=== PATIENT | female | born 1980 | race Caucasian/White ===

== ENCOUNTER 2022-11-16 10:49 | Outpatient (REF) | payer OTHER, SELFPAY ==
[2022-11-16 10:51] LABS: MANUAL DIFF FLAG NO
[2022-11-16 11:00] LABS: Appearance Urine Clear; Color Urine Yellow; Glucose Urine UA Negative (Negative); Leukocyte Esterase Urine Trace (Negative); Nitrite Urine Negative (Negative); PH 5.5 (5.0-9.0); Specific Gravity - Urine 1.015 (1.005-1.025); UMIC TRIGGER UACC YES; Urine Blood Negative (Negative); Urine Ketones Negative (Negative); Urine Protein Negative (Neg-Trace)
[2022-11-16 11:05] LABS: Bacteria Urine None Seen (None Seen); Hyaline Casts Urine 0-2 /LPF (0-2); RBC Urine 0-2 /HPF (0-2); WBC Urine 0-5 /HPF (0-5)
[2022-11-16 11:09] LABS: Basophils Percent Auto 0.7 % (0-2); Eosinophils Absolute Auto 0.2 X10*3/uL (0.0-0.4); Eosinophils Percent Auto 2.4 % (0-4); Hematocrit 40.7 % (37.0-47.0); Hemoglobin 13.3 g/dl (12.0-16.0); Imm Gran Abs Auto 0.02 X10*3/uL (0.00-0.03); Imm Gran Pct Auto 0.3 % (0.0-0.4); Lymphocytes Percent Auto 32.2 % (20-40); Mean Corpuscular HGB Conc 32.7 g/dl (31.0-35.0); Mean Corpuscular Hemoglobin 28.1 pg (27.0-33.0); Mean Corpuscular Volume 85.9 fL (80.0-98.0); Mean Platelet Volume 9.4 fL (9.4-12.3); Monocytes Absolute Auto 0.7 X10*3/uL (0.1-1.2); Monocytes Percent Auto 10.7 % (2-11); Neutrophils Absolute Auto 3.3 x10*3/uL (2.0-8.3); Neutrophils Percent Auto 53.7 % (45-73); Platelet Count 302 X10*3/uL (160-400); Red Blood Count 4.74 X10*6/uL (4.20-5.50); Red Cell Distribution Width 13.2 % (11.0-16.0); White Blood Count 6.1 X10*3/uL (4.8-10.8)
[2022-11-16 11:18] LABS: Alanine Aminotransferase 14 U/L (0-31); Albumin Level 3.9 g/dL (3.5-5.0); Alkaline Phosphatase 60 U/L (39-117); Anion Gap 13 (12-20); Aspartate Amino Transferase 18 U/L (5-31); Bilirubin Total 0.5 mg/dL (0.0-1.0); Blood Urea Nitrogen 13 mg/dL (9-16); Calcium 9.3 mg/dL (8.4-10.2); Carbon Dioxide 22 mmol/L (22-29); Chloride 107 mmol/L (96-108); Cholesterol 210 mg/dL; Estimated Glomerular Filt Rate > 60; Glucose Fasting 96 mg/dL (60-99); HDL Cholesterol 69 mg/dL; LDL Cholesterol Calculated 118 mg/dl; Potassium 4.1 mmol/L (3.3-5.1); Sodium 138 mmol/L (135-145); Total Protein 7.3 g/dL (6.5-8.0); Triglycerides 118 mg/dL
== END 2022-11-16 10:50 | disposition home or self-care (01) ==
LOC: HO.LNP 10:49
PROVIDERS: Visit Provider Internal Medicine
DX: Z00.00 Encounter for general adult medical examination without abnormal findings (principal); Z20.2 Contact with and (suspected) exposure to infections with a predominantly sexual mode of transmission
CPT/HCPCS: 80053; 80061; 81001; 85025

== ENCOUNTER 2023-11-19 10:42 | Outpatient (REF) | payer OTHER, SELFPAY ==
[2023-11-19 10:44] LABS: MANUAL DIFF FLAG NO
[2023-11-19 11:04] LABS: Appearance Urine Clear; Color Urine Yellow; Glucose Urine UA Negative (Negative); Leukocyte Esterase Urine Small (1+) (Negative); Nitrite Urine Negative (Negative); PH 5.5 (5.0-9.0); UMIC TRIGGER UACC YES; Urine Blood Trace (Negative); Urine Ketones Negative (Negative); Urine Protein Negative (Neg-Trace)
[2023-11-19 11:07] LABS: Basophils Percent Auto 0.4 % (0-2); Eosinophils Absolute Auto 0.1 X10*3/uL (0.0-0.4); Hematocrit 38.9 % (37.0-47.0); Imm Gran Abs Auto 0.02 X10*3/uL (0.00-0.03); Imm Gran Pct Auto 0.3 % (0.0-0.4); Lymphocytes Absolute Auto 1.7 X10*3/uL (1.2-4.9); Lymphocytes Percent Auto 23.9 % (20-40); Mean Corpuscular HGB Conc 33.4 g/dl (31.0-35.0); Mean Corpuscular Hemoglobin 28.8 pg (27.0-33.0); Mean Corpuscular Volume 86.3 fL (80.0-98.0); Mean Platelet Volume 9.8 fL (9.4-12.3); Monocytes Absolute Auto 0.6 X10*3/uL (0.1-1.2); Monocytes Percent Auto 9.1 % (2-11); Neutrophils Absolute Auto 4.4 x10*3/uL (2.0-8.3); Neutrophils Percent Auto 64.3 % (45-73); Platelet Count 276 X10*3/uL (160-400); Red Blood Count 4.51 X10*6/uL (4.20-5.50); Red Cell Distribution Width 13.1 % (11.0-16.0); White Blood Count 6.9 X10*3/uL (4.8-10.8)
[2023-11-19 11:11] LABS: Bacteria Urine 2+ (None Seen); Hyaline Casts Urine 0-2 /LPF (0-2); UACC Culture Trigger YES
[2023-11-19 11:42] LABS: Alanine Aminotransferase 11 U/L (0-31); Albumin Level 4.3 g/dL (3.5-5.0); Alkaline Phosphatase 58 U/L (39-117); Anion Gap 10 (12-20); Aspartate Amino Transferase 17 U/L (5-31); Bilirubin Total 0.6 mg/dL (0.0-1.0); Blood Urea Nitrogen 16 mg/dL (9-16); Calcium 9.5 mg/dL (8.4-10.2); Carbon Dioxide 25 mmol/L (22-29); Chloride 108 mmol/L (96-108); Cholesterol 196 mg/dL (<200); Estimated Glomerular Filt Rate > 60; Glucose Fasting 95 mg/dL (60-99); HDL Cholesterol 74 mg/dL (>40); LDL Cholesterol Calculated 109 mg/dL (<100); Sodium 139 mmol/L (135-145); Total Protein 7.4 g/dL (6.5-8.0); Triglycerides 68 mg/dL (<150)
== END 2023-11-19 10:43 | disposition home or self-care (01) ==
LOC: HO.LNP 10:42
PROVIDERS: Visit Provider Internal Medicine
DX: Z00.00 Encounter for general adult medical examination without abnormal findings (principal)
CPT/HCPCS: 80053; 80061; 81001; 85025; 87086; 87088; 87186

== ENCOUNTER 2023-12-03 11:07 | Outpatient (REF) | payer OTHER, SELFPAY ==
[2023-12-03 11:21] LABS: Appearance Urine Clear; Color Urine Yellow; Glucose Urine UA Negative (Negative); Leukocyte Esterase Urine Negative (Negative); Nitrite Urine Negative (Negative); Specific Gravity - Urine <= 1.005 (1.005-1.025); Urine Blood Negative (Negative); Urine Ketones Negative (Negative); Urine Protein Negative (Neg-Trace)
[2023-12-03 11:24] LABS: Bacteria Urine None Seen (None Seen); Hyaline Casts Urine 0-2 /LPF (0-2); RBC Urine 0-2 /HPF (0-2); Squamous Epithelial Cell Urine 0-2 /HPF (0-2); WBC Urine 0-5 /HPF (0-5)
== END 2023-12-03 11:08 | disposition home or self-care (01) ==
LOC: HO.LNP 11:07
PROVIDERS: Visit Provider Internal Medicine
DX: N39.0 Urinary tract infection, site not specified (principal)
CPT/HCPCS: 81001

== ENCOUNTER 2024-06-02 10:31 | Outpatient (REF) | payer OTHER, SELFPAY ==
[2024-06-02 11:16] LABS: Appearance Urine Clear; Color Urine Yellow; Glucose Urine UA Negative (Negative); Leukocyte Esterase Urine Moderate (2+) (Negative); Nitrite Urine Negative (Negative); Specific Gravity - Urine 1.015 (1.005-1.025); UMIC TRIGGER UACC YES; Urine Blood Trace (Negative); Urine Ketones Negative (Negative); Urine Protein Negative (Neg-Trace)
--- OUTSIDE RECORDS SUMMARY | 2024-06-02 11:26 | XMS_ITS | Patient Health Record ---
Author Organization [facility] Address [address] [place] [address] Care Team Providers Care Transport Coordinator Name Role Phone Neil Sullivan MD Primary Care Provider Murphy Donnelly Unavailable [phone] ALLERGIES No Known Allergies REASON FOR REFERRAL No Information MEDICATIONS Medication SIG (Take, Route, Frequency, Duration) Notes Start Date End Date Status Omeprazole Magnesium 20 MG 1 tablet 30 minutes before morning meal Orally Once a day/ otc otc Active Meclizine HCl 25 MG 1 tablet as needed Orally every 12 hrs otc/as needed Not-Taking SOCIAL HISTORY Tobacco Use: Social History Observation Description Date Details (start date - stop date) Never Smoker NA - NA Sex Assigned At : Social History Observation Description Sex Assigned At Unknown Tobacco Use/Smoking Question Answer Notes Patient is a nonsmoker Alcohol Screen Question Answer Notes Did you have a drink contain ing alcohol in the past year? Yes How often did you have a dri nk containing alcohol in the past year? Never (0 point) How many drinks did you have on a typical day when you were drinking in the past year? 1 or 2 drinks (0 point) How often did you have 6 or more drinks on one occasion in the past year? Never (0 point) Points 0 Interpretation Negative PROBLEMS Problem Type ICD Code Onset Dates Problem Status W/U Status Risk SNOMED Code Notes Problem Chronic GERD (K21.9) Active confirmed Gastroesophagea l reflux disease (disorder) (696224993) Problem Dysphagia (R13.10) Active confirmed Dysphagia (35392502) Problem Colon cancer screening (Z12.11) Active confirmed Colon cancer screening (248444011) VITAL SIGNS Blood pressure diastolic 00 mm Hg 09/21/2023 Height 5 ft 4 in in 09/21/2023 Blood pressure systolic 00 mm Hg 09/21/2023 Weight 157 lbs 09/21/2023 BMI 26.95 kg/m2 09/21/2023 Encounters Encounter Location Date Provider Diagnosis [facility] [address] [address] [place], [place] [phone] 10/04/2023 Murphy Arellano [facility] [address] [place] [phone] 09/21/2023 Murphy Arellano Chronic GERD K21.9 ; Dysphagia R13.10 and Colon cancer screening Z12.11 [facility] [address] [place] [address] 10/01/2023 Murphy Arellano ASSESSMENTS Encounter Date Diagnosis Assessment Notes Treatment Notes Treatment Clinical Notes 09/21/2023 Dysphagia (ICD-10 - R13.10) 09/21/2023 Chronic GERD (ICD-10 - K21.9) 09/21/2023 Colon cancer screening (ICD-10 - Z12.11) PLAN OF TREATMENT Future Test Test Name Order Date UPPER GI ENDOSCOPY BALLOOON DILATION OF ESOPH 09/21/2023 COLONOSCOPY 09/21/2023 Insurance Providers Payer Name Payer Address Payer Phone Subscriber Number Group Number Insured Name Patient Relationship to Insured Coverage Start Date Coverage End Date Rachele RUANO [id number] [place], [place] [phone] [id number] RICHI CARVALHO Self - patient is the insured MEDICAL (GENERAL) HISTORY Medical History History ICD Code Denies [place],DM,CVA,Lung disease,renal dise ase Migraine headaches Vertigo GERD Surgical History Surgery Date(Month/Year) Fibroid cyst on uterus 2013 2016
--- OUTSIDE RECORDS SUMMARY | 2024-06-02 11:26 | XMS_ITS ---
Author Organization Neil Sullivan MD Address [address] [place] [phone] Care Team Providers Care Physician In Private Practice Name Role Phone Neil Sullivan Primary Care Provider REASON FOR VISIT refill diprolene Medications Medication SIG (Take, Route, Fr equency, Duration) Notes Start Date End Date Status Diprolene AF 0.05 % as directed External ly twice for 10 days 05/11/2011 Active Encounters Encounter Location Date Provider Diagnosis Neil Sullivan MD [facility] [address] [place] [phone] 03/16/2024 Neil Sullivan Plan Of Treatment Medication Medication Name Sig Start Date Stop Date Notes Diprolene AF 0.05 % as directed External ly twice for 10 days 05/11/2011 Next Appt Details Provider Name:Neil ybarra, 11/21/2024 07:00:00 AM, [facility], [address] [place] [address], [phone], Provider Name:Neil ybarra, 11/28/2024 08:30:00 AM, [address] [place] [address], [address], [phone], Progress Notes * Cathy ANDINO CDOB:1979 (44 yo F)Acc No.[id number]:03/16/2024 Patient:?Cathy Andino :1980???Age:44 Y???Sex:Female Address: [address], [place] [address] * Refills? Refill Diprolene AF Cream, 0.05 %, Externally, 45, as directed, twice, 10 days, Refills=2 * true * Date:? Generated for Mignon floyd/Enrike/Rebeccasmitting on:?06/02/2024 11:26 AM EST
--- OUTSIDE RECORDS SUMMARY | 2024-06-02 11:26 | XMS_ITS ---
Author Organization Neil Sullivan MD Address [address] [place] [phone] Care Team Providers Care Leather Goods Assembler Name Role Phone Neil Sullivan Primary Care Provider [phone] REASON FOR VISIT u/a Encounters Encounter Location Date Provider Diagnosis Neil Sullivan MD [address] [place] [phone] 06/02/2024 Neil Sullivan UTI (urinary tract infection) N39.0 Assessments Encounter Date Diagnosis (ICD Code) Assessment Notes Treatment Notes Treatment Clinical Notes Section Notes 06/02/2024 UTI (urinary tract infection) (ICD-10 - N39.0) Plan Of Treatment Pending Test Test Name Order Date UA ClnCatch+Micro w/rflx Cult 06/02/2024 Next Appt Details Provider Name:Neil ybarra, 11/21/2024 07:00:00 AM, 10 [facility], [address], [phone], Provider Name:Neil ybarra, 11/28/2024 08:30:00 AM, [address] [place] [address], [address], [phone], Progress Notes * Cathy ANDINO CDOB:1979 (44 yo F)Acc No.[id number]:06/02/2024 Progress Note Patient:?Cathy ANDINO C Provider:?Neil Sullivan MD :1980???Age:44 Y???Sex:Female D ate:06/02/2024 [id number] Subjective: * Chief Complaints: * ???1. U/a. * Medical History:? Objective: * Vitals:? Assessment: * Assessment: 1.?UTI (urinary tract infect ion) - N39.0??? Plan: * Treatment: * * The named appointment provid er may or may not be the originator of this progress note, and it is not deemed complete until electronically signed by the appointment provider. Sign off status: Pending * Provider:?Neil Sullivan MD Date:?0 06/02/2024 Generated for Mignon floyd/Enrike/Venuitting on:?06/02/2024 11:26 AM EST
[2024-06-02 11:27] LABS: Bacteria Urine None Seen (None Seen); Hyaline Casts Urine 0-2 /LPF (0-2); Squamous Epithelial Cell Urine 0-2 /HPF (0-2); UACC Culture Trigger YES; WBC Urine >50 /HPF (0-5)
--- OUTSIDE RECORDS SUMMARY | 2024-06-02 11:27 | XMS_ITS | Patient Health Record ---
Author Organization Neil Sullivan MD Address [address] [place], [place] [phone] Care Team Providers Care Shell Mold Bonder Name Role Phone Neil Sullivan Primary Care Provider [phone] Allergies Allergen (clinical drug ingredient) Drug/Non Drug Allergy documented on EMR Reaction Allergy Type Onset Date Status sumatriptan Imitrex (uncoded) tense feeling Allergy Active naproxen / sumatriptan Treximet (uncoded) GI Upset Allergy Active Results Component Value Reference Range Notes Urine Culture Reviewed date:11/22/2023 07:55:15 AM Interpretation: Performing Lab:[facility], [address] [place] [phone] Notes/Report: O:ESCCOL Escherichia coli Urine Culture Quant Urine Culture > 100,000 cfu/mL O:CORSPE Corynebacterium species Urine Culture No [facility] Urine Culture Standard methods for susceptibility testing not established. Urine Culture Quant Urine Culture 10,000 to 50,000 cfu/mL Ampicillin 4 Ceftriaxone <=0.25 Gentamicin <=1 Levofloxacin <=0.12 Nitrofurantoin <=16 Trimethoprim/Sulfamethoxa zole <=20 Complete Blood Count Auto Di ff Reviewed date:11/19/2023 03:31:44 PM Interpretation: Performing Lab:[facility], [address] [place] [phone] Notes/Report: White Blood Count 6.9 4.8-10.8 X10*3/uL Red Blood Count 4.51 4.20-5.50 X10*6/uL Hemoglobin 13.0 12.0-16.0 g/dl Hematocrit 38.9 37.0-47.0 % Mean Corpuscular Volume 86.3 80.0-98.0 fL Mean Corpuscular Hemoglobin 28.8 27.0-33.0 pg Mean Corpuscular HGB Conc 33.4 31.0-35.0 g/dl Red Cell Distribution Width 13.1 11.0-16.0 % Platelet Count 276 160-400 X10*3/uL Mean Platelet Volume 9.8 9.4-12.3 fL Neutrophils Percent Auto 64.3 45-73 % Imm Gran Pct Auto 0.3 0.0-0.4 % Lymphocytes Percent Auto 23.9 20-40 % Monocytes Percent Auto 9.1 2-11 % Eosinophils Percent Auto 2.0 0-4 % Basophils Percent Auto 0.4 0-2 % NRBC Pct Auto 0.0 0.0-0.2 /100WBC Neutrophils Absolute Auto 4.4 2.0-8.3 x10*3/u L Imm Gran Abs Auto 0.02 0.00-0.03 X10*3/uL Lymphocytes Absolute Auto 1.7 1.2-4.9 X10*3/u L Monocytes Absolute Auto 0.6 0.1-1.2 X10*3/uL Eosinophils Absolute Auto 0.1 0.0-0.4 X10*3/u L Basophils Absolute Auto 0.0 0.0-0.2 X10*3/uL NRBC Abs Auto 0.000 0.0-0.012 X10*3/uL Comprehensive [place]. Panel Fa st Reviewed date:11/19/2023 03:39:57 PM Interpretation: Performing Lab:[facility], [address] [place] [phone] Notes/Report: Sodium 139 135-145 mmol/L Potassium 4.0 3.3-5.1 mmol/L Chloride 108 96-108 mmol/L Carbon Dioxide 25 22-29 mmol/L Anion Gap 10 12-20 Blood Urea Nitrogen 16 9-16 mg/dL Creatinine 0.96 0.5-1.4 mg/dL Estimated Glomerular Filt Rate > 60 NOTE: For -Nigerien individuals, multiply the result by 1.210. Chronic Kidney Disease: Estimated GFR < 60 mL/min/1.73m2 Severe Kidney Disease: Estimated GFR < 15 mL/min/1.73m2 Glucose Fasting 95 60-99 mg/dL Calcium 9.5 8.4-10.2 mg/dL Bilirubin Total 0.6 0.0-1.0 mg/dL Aspartate Amino Transferase 17 5-31 U/L Alanine Aminotransferase 11 0-31 U/L Total Protein 7.4 6.5-8.0 g/dL Albumin Level 4.3 3.5-5.0 g/dL Alkaline Phosphatase 58 39-117 U/L Lipid Panel Reviewed date:11/19/2023 03:32:21 PM Interpretation: Performing Lab:[facility], [address] [place] [phone] Notes/Report: Triglycerides 68 <150 mg/dL Desirable Triglyceride: less than 150 mg/dL Borderline High Triglyceride 150-199 mg/dL High Triglyceride: 200-499 mg/dL Very High Triglyceride: greater than or equal to 5OO mg/dL Cholesterol 196 <200 mg/dL Desirable Cholesterol: less than 200 mg/dL Borderline High Cholesterol: 200-239 mg/dL High Cholesterol: greater than 239 mg/dL LDL Cholesterol Calculated 109 <100 mg/dL Desirable LDL: less than 100 mg/dL Near Optimal/Above Optimal LDL: 110-129 mg/dL Borderline High LDL: 130-159 mg/dL High LDL: 160-189 mg/dL Very High LDL: greater than or equal to 190 mg/dL HDL Cholesterol 74 >40 mg/dL Desirable HDL: greater than 40 mg/dL Note: This HDL assay may give artificially low results in patients with liver disease. UA ClnCatch+Micro w/rflx Cul t Reviewed date:11/22/2023 07:56:40 AM Interpretation: Performing Lab:[facility], [address] [place] [phone] Notes/Report: Urine, Clean Catch Color Urine Yellow Appearance Urine Clear PH 5.5 5.0-9.0 Glucose Urine UA Negative Negative mg/dL Urine Blood Trace Negative Specific Jasper - Urine 1.020 1.005-1.025 Urine Protein Negative Neg-Trace mg/dL Urine Ketones Negative Negative mg/dL Nitrite Urine Negative Negative Leukocyte Esterase Urine Small (1+) Negative RBC Urine 3-5 0-2 /HPF WBC Urine 6-10 0-5 /HPF Squamous Epithelial Cell Urine 6-10 0-2 /HPF Bacteria Urine 2+ None Seen Hyaline Casts Urine 0-2 0-2 /LPF UA ClnCatch+Micro w/rflx Cul t Reviewed date:12/03/2023 12:14:07 PM Interpretation: Performing Lab:[facility], [address] [place] [phone] Notes/Report: Urine, Clean Catch Color Urine Yellow Appearance Urine Clear PH 7.0 5.0-9.0 Glucose Urine UA Negative Negative mg/dL Urine Blood Negative Negative Specific Jasper - Urine <= 1.005 1.005-1.025 Urine Protein Negative Neg-Trace mg/dL Urine Ketones Negative Negative mg/dL Nitrite Urine Negative Negative Leukocyte Esterase Urine Negative Negative RBC Urine 0-2 0-2 /HPF WBC Urine 0-5 0-5 /HPF Squamous Epithelial Cell Urine 0-2 0-2 /HPF Bacteria Urine None Seen None Seen Hyaline Casts Urine 0-2 0-2 /LPF Reason For Referral No Information Medications Medication SIG (Take, Route, Frequency, Duration) Notes Start Date End Date Status Diprolene AF 0.05 % as directed External ly twice for 10 days 05/11/2011 Active Albuterol Sulfate HFA 108 (90 Base) MCG/ACT 2 puff as needed Inhalation every 4 hrs for 30 days 07/13/2023 Active Esomeprazole Magnesium 20 MG 1 capsule Orally Once a day for 30 day(s) Active Flonase 50 MCG/ACT 1 spray in each nost ril Nasally Once a day for 30 day(s) 05/27/2012 Not-Taking Cephalexin 250 MG 1 capsule Orally 3 times a day for 5 days 11/21/2023 Active Levonorgest-Eth Estrad 91-Day 0.1-0.02 & 0.01 MG 1 tablet Orally Once a day for 91 day(s) Active Amoxicillin-Pot Clavulanate 875-125 MG 1 tablet Orally every 12 hrs for 10 days 05/02/2024 Active Immunizations Vaccine Route Administration Date Status Comme nts TDaP IM Intramuscular 08/06/2015 Administered Tetanus Unknown 08/06/2015 Pending Social History Tobacco Use: Social History Observation Description Date Details (start date - stop date) Never Smoker NA - NA Tobacco Use/Smoking Question Answer Notes Patient is a nonsmoker Additional Findings: Tobacco Non-User Cu rrent non-smoker, currently using no form of tobacco Alcohol Screen Question Answer Notes Did you have a drink contain ing alcohol in the past year? Yes How often did you have a dri nk containing alcohol in the past year? Monthly or less (1 point) How many drinks did you have on a typical day when you were drinking in the past year? 1 or 2 drinks (0 point) How often did you have 6 or more drinks on one occasion in the past year? 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 confirmed Problem 6407526 Migraine with aura and without status migrainosus, not intractable (G43.109) Active confirmed Vital Signs Blood pressure diastolic 70 mm Hg 11/26/2023 angus ght is up 13 pounds since 07-13-23 Height 64.25 in 05/02/2024 weight is 145 a nd BP not taken no temp today it was 100 1-17-25 Blood pressure systolic 112 mm Hg 11/26/2023 weig ht is up 13 pounds since 07-13-23 Weight 158 lbs 11/26/2023 weight is up 13 pounds since 07-13-23 BMI 26.91 kg/m2 11/26/2023 weight is up 13 pounds since 07-13-23 Encounters Encounter Location Date Provider Diagnosis Neil Sullivan MD [address] [place] [id number] 11/19/2023 Neil Sullivan Blood tests for routine general physical examination Z00.00 Neil Sullivan MD [address] [place] [address] Drive [address] [place] [id number] 12/03/2023 Neil Sullivan Urinary tract infection without hematuria, site unspecified N39.0 Neil Sullivan MD [address] [place] [address] Drive [address] [place] [id number] 06/02/2024 Neil Sullivan UTI (urinary tract infection) N39.0 Neil Sullivan MD [address] [place] [id number] 07/13/2023 Neil Sullivan Bronchitis J40 Neil Sullivan MD [address] [place] [id number] 11/26/2023 Neil Sullivan Physical exam, annual Z00.00 Neil Sullivan MD [address] [place] [id number] 05/02/2024 Neil Sullivan Acute recurrent maxillary sinusitis J01.01 Neil Sullivan MD [address] [place] [id number] 11/21/2023 Neil Sullivan MD [address] [place] [id number] 03/16/2024 Neil Sullivan Assessments Encounter Date Diagnosis (ICD Code) Assessment Notes Treatment Notes Treatment Clinical Notes Section Notes 11/19/2023 Blood tests for routine general physical examination (ICD-10 - Z00.00) 12/03/2023 Urinary tract infection without hematuria, site unspecified (ICD-10 - N39.0) 06/02/2024 UTI (urinary tract infection) (ICD-10 - N39.0) 07/13/2023 Bronchitis (ICD-10 - J40) patient verbalized understanding of medication and direction for use 11/26/2023 Physical exam, annual (ICD-10 - Z00.00) labs reviewed ad discussed with patient/ not aware of why she is gaining weight. has been under a lot of stress recently with the change in her job after over 20 years but does not think she is eating any more. 05/02/2024 Acute recurrent maxillary sinusitis (ICD-10 - J01.01) patient verbalized understandingof medication and directions for use Plan Of Treatment Pending Test Test Name Order Date UA ClnCatch+Micro w/rflx Cult 06/02/2024 Next Appt Details Provider Name:Neil ybarra, 11/21/2024 07:00:00 AM, [facility], Suite [facility], [place], [place], [phone], Provider Name:Neil ybarra, 11/28/2024 08:30:00 AM, [address], [address], [place], [phone], Insurance Providers Payer Name Payer Address Payer Phone Subscriber Number Group Number Insured Name Patient Relationship to Insured Coverage Start Date Coverage End Date [place] [id number] JAQUELIN [place] [phone] [id number] Cathy Andino Self - patient is the insured
--- OUTSIDE RECORDS SUMMARY | 2024-06-02 11:27 | XMS_ITS ---
Author Organization Neil Sullivan MD Address [address] [place], [place] [phone] Care Team Providers Care Security Patrol Driver Name Role Phone Neil Sullivan Primary Care Provider Allergies Allergen (clinical drug ingredient) Drug/Non Drug Allergy documented on EMR Reaction Allergy Type Onset Date Status sumatriptan Imitrex (uncoded) tense feeling Allergy Active naproxen / sumatriptan Treximet (uncoded) GI Upset Allergy Active REASON FOR VISIT sore throat. congested, coughing ? i sinus infection., cell phone [phone] Medications Medication SIG (Take, Route, Frequency, Duration) Notes Start Date End Date Status Albuterol Sulfate HFA 108 (90 Base) MCG/ACT 2 puff as needed Inhalation every 4 hrs for 30 days 07/13/2023 Active Esomeprazole Magnesium 20 MG 1 capsule Orally Once a day for 30 day(s) Active Cephalexin 250 MG 1 capsule Orally 3 times a day for 5 days 11/21/2023 Active Levonorgest-Eth Estrad -Day 0.1-0.02 & 0.01 MG 1 tablet Orally Once a day for 91 day(s) Active Amoxicillin-Pot Clavulanate 875-125 MG 1 tablet Orally every 12 hrs for 10 days 05/02/2024 Active Diprolene AF 0.05 % as directed External ly twice for 10 days 05/11/2011 Active Flonase 50 MCG/ACT 1 spray in each nost ril Nasally Once a day for 30 day(s) 05/27/2012 Not-Taking Vital Signs Height 64.25 in 05/02/2024 weight is 145 and BP not jes en no temp today it was 100 04-28-24 Encounters Encounter Location Date Provider Diagnosis Neil Sullivan MD [address] [place] [id number] 05/02/2024 Neil Sullivan Acute recurrent maxillary sinusitis J01.01 Assessments Encounter Date Diagnosis (ICD Code) Assessment Notes Treatment Notes Treatment Clinical Notes Section Notes 05/02/2024 Acute recurrent maxillary sinusitis (ICD-10 - J01.01) patient verbalized understandingof medication and directions for use Plan Of Treatment Medication Medication Name Sig Start Date Stop Date Notes Amoxicillin-Pot Clavulanate 875-125 MG 1 tablet Orally every 12 hrs for 10 days 05/02/2024 Treatment Notes Assessment Notes Acute recurrent maxillary sinusitis chivo ent verbalized understandingof medication and directions for use Next Appt Details Provider Name:Neil ybarra, 11/21/2024 07:00:00 AM, [address] [place] [address], [place], [place], [phone], Provider Name:Neil ybarra, 11/28/2024 08:30:00 AM, [address] [place] [address], [place], [place], [phone], Progress Notes * MAIACathy HUI CDOB:1979 (44 yo F)Acc No.[id number]:05/02/2024 Patient:?AliceCathy C Provider:?Neil Sullivan MD :1980???Age:44 Y???Sex:Female D ate:05/02/2024 Address:[address], [id number] Subjective: * Chief Complaints: * ???Sore throat. congested, c oughing ? i sinus infection.Cell phone [phone] * HPI: ???Symptom(s):?Telehealth?Location of provider rendering services:?[address], [address],?Location of patient:?other (please specify) At work [facility],?Patient identification confirmed using:?Name, ,?Telehealth method:?Telephone only. Patient not visible to care provider.,?Consent:?Patient verbally consented to treatment, Patient verbally consented to billing insurance company, Patient informed of any privacy concerns related to method of visit,?Total time spend talking with patient (minutes)?10.? yareli is a 44 yo female audio telehealth visit, here as emergency/ lot of congestion for one week. 3 days ago fever and chills. has a lot of post nasal drip and mucous green and sore teeth. * ROS:?General/Constitutional:?Admits?Chills,?04-28-24.?Admits?Fatigue.?Admits?Fever.?Denies?Headache.?ENT:?Patient denies?decreased sense of smell , any loss of taste , sore throat.?Admits?Sore throat.?Respiratory:?Denies?Cough.?Denies?Shortness of breath with exertion.?Gastrointestinal:?Denies?Diarrhea.?Denies?Nausea.?Musculoskeletal:?Patient denies?muscle aches.?Peripheral Vascular:?Patient denies?red and blue toes.? * Medical History:? * Surgical History:? * Hospitalization/Major Diagno stic Procedure:? * Medications:?TakingLevonorge st-Eth Estrad 91-Day 0.1-0.02 & 0.01 MG Tablet 1 tablet Orally Once a day Esomeprazole Magnesium 20 MG Capsule Delayed Release 1 capsule Orally Once a day Albuterol Sulfate HFA 108 (90 Base) MCG/ACT Aerosol Solution 2 puff as needed Inhalation every 4 hrs Cephalexin 250 MG Capsule 1 capsule Orally 3 times a day Diprolene AF 0.05 % Cream as directed Externally twice Taking Levonorgest- Eth Estrad 91-Day 0.1-0.02 & 0.01 MG Tablet 1 tablet Orally Once a day Taking Esomeprazole Magnesium 20 MG Capsule Delayed Release 1 capsule Orally Once a day Taking Albuterol Sulfate HFA 108 (90 Base) MCG/ACT Aerosol Solution 2 puff as needed Inhalation every 4 hrs Taking Cephalexin 250 MG Capsule 1 capsule Orally 3 times a day Taking Diprolene AF 0.05 % Cream as directed Externally twice Not-Taking/PRNFlonase 50 MCG/ACT Suspension 1 spray in each nostril Nasally Once a day Not-Taking/PRN Flonase 50 MCG/ACT Suspension 1 spray in each nostril Nasally Once a day * Allergies:?Treximet: GI Upse tImitrex: tense feelingyes[Allergies Verified] Objective: * Vitals:?Ht: 64.25. weight is 145 and BP not taken no temp today it was 100 04-28-24. Assessment: * Assessment: 1.?Acute recurrent maxillary sinusitis - J01.01 (Primary)??? Plan: * Treatment: * Procedure Codes:? * * Sign off status: Completed true * Provider:?Neil Sullivan MD Date:?0 05/02/2024 Generated for Mignon floyd/Enrike/Venuitting on:?06/02/2024 11:26 AM EST History and Physical Notes * HPI (History of Present Illness) Category Sub-Category Detail Notes Category Not es Symptom(s) Telehealth Location of [facility] rendering services:: [address], [address] yareli is a 44 yo female audio telehealth visit, here as emergency/ lot of congestion for one week. 3 days ago fever and chills. has a lot of post nasal drip and mucous green and sore teeth. Location of patient:: other (please spec ronaldo) At work [facility] Patient identification confirmed using:: Name, Telehealth method:: Telephon e only. Patient not visible to care provider. Consent:: Patient verbally c onsented to treatment, Patient verbally consented to billing insurance company, Patient informed of any privacy concerns related to method of visit Total time spend talking with patient (m inutes): 10
--- OUTSIDE RECORDS SUMMARY | 2024-06-02 11:27 | XMS_ITS ---
Author Organization [facility] Address [address] [place] [address] Care Team Providers Care Desk Monitor Name Role Phone Laurie BERKOWITZ, Neil Primary Care Provider Murphy Donnelly [phone] REASON FOR VISIT gerd,dysphagia,screening Encounters Encounter Location Date Provider Diagnosis [facility] [address] [place] [phone] 10/04/2023 Murphy Arellano PLAN OF TREATMENT No Information
--- OUTSIDE RECORDS SUMMARY | 2024-06-02 11:27 | XMS_ITS ---
Author Organization [facility] Address [address] [place] [address] Care Team Providers Care Chairman & Co Founder Name Role Phone Neil Sullivan MD Primary Care Provider Murphy Donnelly [phone] REASON FOR VISIT cancelled due to out of network Encounters Encounter Location Date Provider Diagnosis [facility] [address] [place] [address] 10/01/2023 Murphy Arellano PLAN OF TREATMENT No Information
--- OUTSIDE RECORDS SUMMARY | 2024-06-02 11:27 | XMS_ITS ---
Author Organization [facility] Address [address] [place] [address] Care Team Providers Care Art Editor Name Role Phone Laurie BERKOWITZ, Neil Primary Care Provider Murphy Donnelly Unavailable [phone] ALLERGIES No Known Allergies REASON FOR VISIT Patient presents today for a dicuss colonoscopy & egd MEDICATIONS Medication SIG (Take, Route, Frequency, Duration) [...] Active confirmed Gastroesophagea l reflux disease (disorder) (934025297) Problem Dysphagia (R13.10) Active confirmed Dysphagia (77485616) Problem Colon cancer screening (Z12.11) Active confirmed Colon cancer screening (742245077) VITAL SIGNS BMI 26.95 kg/m2 09/21/2023 Blood pressure systolic 00 mm Hg 09/21/19 24 Blood pressure diastolic 00 mm Hg 024 Height 5 ft 4 in in 09/21/2023 Weight 157 lbs 09/21/2023 Encounters Encounter Location Date Provider Diagnosis [facility] [address] [place] [address] 09/21/2023 Murphy Arellano Chronic GERD K21.9 ; Dysphagia R13.10 and Colon cancer screening Z12.11 ASSESSMENTS Encounter Date Diagnosis Assessment Notes Treatment Notes Treatment Clinical Notes 09/21/2023 Chronic GERD (ICD-10 - K21.9) 09/21/2023 Dysphagia (ICD-10 - R13.10) 09/21/2023 Colon cancer screening (ICD-10 - Z12.11) PLAN OF TREATMENT Future Test Test Name Order Date UPPER GI ENDOSCOPY BALLOOON DILATION OF ESOPH 09/21/2023 COLONOSCOPY 09/21/2023 Next Appt Details Follow Up: prn, Reason: Progress Notes * Examination Category Sub-Category Detail Notes General Examination GENERAL APPEARANCE: pleasant , well nourished, well developed, in no acute distress HEAD: EYES: sclera non-icteric EARS: NOSE: THROAT: NECK/THYROID: no cervical lymphade nopathy, neck supple HEART: S1, S2 normal CHEST: LUNGS: clear to auscultatio n bilaterally ABDOMEN: normal bowel sounds, no guarding or rigidity, no guarding or rigidity, no masses palpable, soft, nontender, nondistended NEUROLOGIC: alert and oriented SKIN: nonjaundiced, no spi buck angiomata EXTREMITIES: no edema PERIPHERAL PULSES: BACK: BREASTS: MUSCULOSKELETAL: MALE GENITOURINARY: LYMPH NODES: RECTAL EXAM: FEMALE GENITOURINARY: ORAL CAVITY: mucosa moist
== END 2024-06-02 10:32 | disposition home or self-care (01) ==
LOC: HO.LNP 10:31
PROVIDERS: Visit Provider Internal Medicine
DX: N39.0 Urinary tract infection, site not specified (principal)
CPT/HCPCS: 81001; 87086

== ENCOUNTER 2024-06-22 10:23 | Outpatient (REF) | payer OTHER, SELFPAY ==
[2024-06-22 10:49] LABS: Appearance Urine Clear; Color Urine Yellow; Glucose Urine UA Negative (Negative); Leukocyte Esterase Urine Negative (Negative); Nitrite Urine Negative (Negative); Specific Gravity - Urine 1.025 (1.005-1.025); Urine Blood Negative (Negative); Urine Ketones Trace mg/dL (Negative); Urine Protein Negative (Neg-Trace)
[2024-06-22 11:10] LABS: Bacteria Urine None Seen (None Seen); Hyaline Casts Urine 0-2 /LPF (0-2); RBC Urine 0-2 /HPF (0-2); WBC Urine 0-5 /HPF (0-5)
--- OUTSIDE RECORDS SUMMARY | 2024-06-22 12:56 | XMS_ITS ---
Author Organization Neil Sullivan MD Address [address] [place] [phone] Care Team Providers Care Chemistry Professor Name Role Phone Neil Sullivan Primary Care Provider [phone] Results Component Value Reference Range Notes UA ClnCatch+Micro w/rflx Cul t Reviewed date:06/05/2024 09:49:01 AM Interpretation: Performing Lab:[facility], [address] [place] [phone] Notes/Report: Urine, Clean Catch Color Urine Yellow Appearance Urine Clear PH 8.0 5.0-9.0 Glucose Urine UA Negative Negative mg/dL Urine Blood Trace Negative Specific [place] - Urine 1.015 1.005-1.025 Urine Protein Negative Neg-Trace mg/dL Urine Ketones Negative Negative mg/dL Nitrite Urine Negative Negative Leukocyte Esterase Urine Moderate (2+) Negative RBC Urine 6-10 0-2 /HPF WBC Urine >50 0-5 /HPF Squamous Epithelial Cell Urine 0-2 0-2 /HPF Bacteria Urine None Seen None Seen Hyaline Casts Urine 0-2 0-2 /LPF REASON FOR VISIT u/a Encounters Encounter Location Date Provider Diagnosis Neil Sullivan MD [address] [place], [place] [phone] 06/02/2024 Neil Sullivan UTI (urinary tract infection) N39.0 Assessments Encounter Date Diagnosis (ICD Code) Assessment Notes Treatment Notes Treatment Clinical Notes Section Notes 06/02/2024 UTI (urinary tract infection) (ICD-10 - N39.0) Plan Of Treatment Next Appt Details Provider Name:Neil ybarra, 11/21/2024 07:00:00 AM, [address] [facility], [address], [place], [place], [phone], Provider Name:Neil Ledesma lawrencer, 11/28/2024 08:30:00 AM, [address] [facility], [address], [place], [place], [phone], Progress Notes * Cathy ANDINO CDOB:1979 (44 yo F)Acc No.[id number]:06/02/2024 Progress Note Patient:Cathy CARR Provider:?Neil Sullivan MD :1980???Age:44 Y???Sex:Female D ate:06/02/2024 Address:[facility] Subjective: * Chief Complaints: * ???1. U/a. * Medical History:? Objective: * Vitals:? Assessment: * Assessment: 1.?UTI (urinary tract infect ion) - N39.0 (Primary)??? Plan: * Treatment: * * The named appointment provid er may or may not be the originator of this progress note, and it is not deemed complete until electronically signed by the appointment provider. Sign off status: Pending * Provider:?Neil Sullivan MD Date:?0 06/02/2024 Generated for Mignon floyd/Enrike/eTransmitting on:?06/22/2024 12:56 PM EDT
--- OUTSIDE RECORDS SUMMARY | 2024-06-22 12:57 | XMS_ITS ---
Author Organization Neil Sullivan MD Address [address] [place] [phone] Care Team Providers Care Yard Specialist Name Role Phone Neil Sullivan Primary Care Provider Medications Medication SIG (Take, Route, Fr equency, Duration) Notes Start Date End Date Status Cephalexin 500 MG 1 capsule Orally twi ce a day for 5 days 06/02/2024 Active Encounters Encounter Location Date Provider Diagnosis Neil Sullivan MD [address] [facility] [address] [place] [phone] 06/02/2024 Neil Sullivan Plan Of Treatment Medication Medication Name Sig Start Date Stop Date Notes Cephalexin 500 MG 1 capsule Orally twice a day for 5 days 06/02/2024 Next Appt Details Provider Name:Neil ybarra, 11/21/2024 07:00:00 AM, [address] [place] [address], [address] [place] [address], [phone], Provider Name:Neil ybarra, 11/28/2024 08:30:00 AM, [address] [place] [address], [address] [place] [address], [phone], Progress Notes * Cathy ANDINO CDOB:1979 (44 yo F)Acc No.[id number]:06/02/2024 Patient:?Cathy ANDINO :1980???Age:44 Y???Sex:Female Address: [address], [place] [address] * Refills? Start Cephalexin Capsule, 500 MG, Orally, 10 Capsule, 1 capsule, twice a day, 5 days * true * Date:? Generated for Mignon floyd/Enrike/eTransmitting on:?06/22/2024 12:57 PM EDT
--- OUTSIDE RECORDS SUMMARY | 2024-06-22 12:57 | XMS_ITS ---
Author Organization [facility] Address [address] [place] [address] Care Team Providers Care Fly Tier Name Role Phone Laurie BERKOWITZ, Neil Primary Care Provider Murphy Donnelly [facility] [phone] REASON FOR VISIT gerd,dysphagia,screening Encounters Encounter Location Date Provider Diagnosis [facility] [place] [facility] [address] [place] [phone] 10/04/2023 Murphy Arellano Plan Of Treatment No Information Progress Notes * RICHI CARVALHODOB:[birth year] (44 yo F)Acc No.[id number]:10/04/2023 EGD and COL/MAC Patient:?RICHI CARVALHO Provider:?Murphy Arellano MD :1980???Age:43 Y???Sex:Female D ate:10/04/2023 Address:[address] [place], [place] [phone] Pcp:Neil Sullivan MD Subjective: * Chief Complaints: * ???1. Gerd,dysphagia,screeni ng. * Medical History:? Objective: * Vitals:? Assessment: Plan: * Treatment: * * The named appointment provid er may or may not be the originator of this progress note, and it is not deemed complete until electronically signed by the appointment provider. Sign off status: Pending * Provider:?Murphy Arellano MD Date:? 024 Generated for Printi ng/Faxing/eTransmitting on:?06/22/2024 12:57 PM EDT
--- OUTSIDE RECORDS SUMMARY | 2024-06-22 12:57 | XMS_ITS ---
Author Organization [facility] Address [address] [place] [address] Care Team Providers Care Client Technical Professional Name Role Phone Laurie BERKOWITZ, Neil Primary Care Provider Murphy Donnelly Unavailable [phone] Allergies No Known Allergies REASON FOR VISIT Patient presents today for a dicuss colonoscopy & egd Medications Medication SIG (Take, Route, Frequency, Duration) Notes Start Date End Date Status Omeprazole Magnesium 20 MG 1 tablet 30 minutes before morning meal Orally Once a day/ otc otc Active Meclizine HCl 25 MG 1 tablet as needed Orally every 12 hrs otc/as needed Not-Taking Social History Tobacco Use: Social History Observation [...] Never (0 point) Points 0 Interpretation Negative Problems Problem Type SNOMED Code ICD Code Onset Dates Problem Status W/U Status Risk Notes Problem Gastroesophageal reflux disease (disorder) (954415642) Chronic GERD (K21.9) Active confirmed Problem Dysphagia (80190676) Dysphagia (R13.10) Active confirmed Problem Colon cancer screening (396976324) Colon cancer screening (Z12.11) Active confirmed Vital Signs Blood pressure systolic 00 mm Hg 09/21/19 24 Blood pressure diastolic 00 mm Hg 024 Height 5 ft 4 in in 09/21/2023 Weight 157 lbs 09/21/2023 BMI 26.95 kg/m2 09/21/2023 Encounters Encounter Location Date Provider Diagnosis [facility] [address] [place] [address] 09/21/2023 Murphy Arellano Chronic GERD K21.9 ; Dysphagia R13.10 and Colon cancer screening Z12.11 Assessments Encounter Date Diagnosis (ICD Code) Assessment Notes Treatment Notes Treatment Clinical Notes Section Notes 09/21/2023 Chronic GERD (ICD-10 - K21.9) Overall, Cathy appears quite well. In regard to her upper GI complaints of chronic reflux and associated dysphagia while off her PPI, we did review the possibilities of acid reflux-induced esophageal spasm, an esophageal stricture or ring, or eosinophilic esophagitis. I did recommend an upper endoscopy with possible balloon dilation for further evaluation and treatment of this. She will also undergo a screening colonoscopy given her age and excellent clinical appearance, as well as family history of colon polyps. We did review the rationale for that in regard to colon cancer prevention. Full consent was obtained from her for both procedures, including risks of bleeding and perforation. The procedures will be done with monitored anesthesia care. Cathy was comfortable with this plan. Thank you again for allowing me to participate in Cathy's care. I shall continue to keep you advised of her progress. 09/21/2023 Dysphagia (ICD-10 - R13.10) Overall, Cathy appears quite well. In regard to her upper GI complaints of chronic reflux and associated dysphagia while off her PPI, we did review the possibilities of acid reflux-induced esophageal spasm, an esophageal stricture or ring, or eosinophilic esophagitis. I did recommend an upper endoscopy with possible balloon dilation for further evaluation and treatment of this. She will also undergo a screening colonoscopy given her age and excellent clinical appearance, as well as family history of colon polyps. We did review the rationale for that in regard to colon cancer prevention. Full consent was obtained from her for both procedures, including risks of bleeding and perforation. The procedures will be done with monitored anesthesia care. Cathy was comfortable with this plan. Thank you again for allowing me to participate in Cathy's care. I shall continue to keep you advised of her progress. 09/21/2023 Colon cancer screening (ICD-10 - Z12.11) Overall, Cathy appears quite well. In regard to her upper GI complaints of chronic reflux and associated dysphagia while off her PPI, we did review the possibilities of acid reflux-induced esophageal spasm, an esophageal stricture or ring, or eosinophilic esophagitis. I did recommend an upper endoscopy with possible balloon dilation for further evaluation and treatment of this. She will also undergo a screening colonoscopy given her age and excellent clinical appearance, as well as family history of colon polyps. We did review the rationale for that in regard to colon cancer prevention. Full consent was obtained from her for both procedures, including risks of bleeding and perforation. The procedures will be done with monitored anesthesia care. Cathy was comfortable with this plan. Thank you again for allowing me to participate in Cathy's care. I shall continue to keep you advised of her progress. Plan Of Treatment Future Test Test Name Order Date UPPER GI ENDOSCOPY BALLOOON DILATION OF ESOPH 09/21/2023 COLONOSCOPY 09/21/2023 Next Appt Details Follow Up: prn, Reason: Progress Notes * CATHY CARVALHODOB:[birth year] (43 yo F)Acc No.[id number]:09/21/2023 Progress Notes Patient:?CATHY CARVALHO Provider:?Murphy Arellano MD :1980???Age:43 Y???Sex:Female D ate:09/21/2023 Address:[address] [place] [address] Pcp:Neil Sullivan MD Subjective: * Chief Complaints: * ???Patient presents today fo r a dicuss colonoscopy & egd * HPI: ???incontinence:? I saw Cathy in consultation today in regard to further evaluation of her chronic gastroesophageal reflux, dysphagia, and need for colon cancer screening. ?As you know, Cathy is a healthy 43-year-old female who describes a fairly long-standing history of reflux and heartburn. She reports good symptomatic relief on daily omeprazole but if she tries to stop that she will develop recurrent heartburn and then dysphagia fairly promptly. She describes that as long as she takes her omeprazole regularly she does not have any difficulty with eating or swallowing. She denies any actual symptoms of esophageal obstruction but describes some sense of delay of the food going down when she has trouble with her swallowing if she is not using the omeprazole regularly. She denies any early satiety, nausea, vomiting, nor anorexia. She denies abdominal pain, jaundice, nor unintentional weight loss. Her bowel movements have been regular and without any signs of bleeding. She denies any family history of colon cancer. She does have a family history of colon polyps. She has never had an endoscopy or colonoscopy. * ROS:?General/Constitutional:?Change in appetite?denies.?Chills?denies.?Fatigue?denies.?Ophthalmologic:?Comments?all negative.?ENT:?Comments?all negative.?Respiratory:?hemoptysis?denies.?Cough?denies.?Cardiovascular:?Chest pain?denies.?Orthopnea?denies.?Gastrointestinal:?Comments?See HPI for details.?Genitourinary:?Hematuria?denies.?Dysuria?denies.?Musculoskeletal:?Painful joints?denies.?Weakness?denies.?Skin:?Itching?denies.?Rash?denies.?Neurologic:?Headache?denies.?Seizures?denies.?Psychiatric:?Comments?all negative.? * Medical History:? * Surgical History:?Fibroid cy st on uterus 2014C-section 2016 * Hospitalization/Major Diagno stic Procedure:?No Hospitalization History. * Family History:?Father: ashlee mckeon, benign polyps, diagnosed with HTN (hypertension), Colon polyps.?Mother: alive, CHF, diagnosed with Heart disease.? No known hx of colon cancer. * Social History:?Tobacco Use:?Tobacco Use/Smoking?Patient is a?nonsmoker.?Drugs/Alcohol:?Alcohol Screen?Did you have a drink containing alcohol in the past year??Yes,?How often did you have a drink containing alcohol in the past year??Never (0 point),?How many drinks did you have on a typical day when you were drinking in the past year??1 or 2 drinks (0 point),?How often did you have 6 or more drinks on one occasion in the past year??Never (0 point),?Points?0,?Interpretation?Negative.?Miscellaneous:?Marital status: . 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 * Medications:?TakingOmeprazol e Magnesium 20 MG Tablet Delayed Release 1 tablet 30 minutes before morning meal Orally Once a day/ otc, Notes: otcTaking Omeprazole Magnesium 20 MG Tablet Delayed Release 1 tablet 30 minutes before morning meal Orally Once a day/ otc, Notes: otcNot-Taking/PRNMeclizine HCl 25 MG Tablet Chewable 1 tablet as needed Orally every 12 hrs, Notes: otc/as neededMedication List reviewed and reconciled with the patientNot-Taking/PRN Meclizine HCl 25 MG Tablet Chewable 1 tablet as needed Orally every 12 hrs, Notes: otc/as neededMedication List reviewed and reconciled with the patient * Allergies:?N.K.D.A.yes[Aller gies Verified] Objective: * Vitals:?Wt: 157 lbs, Ht: 5 f t 4 in, BMI:26.95 Index, BP: 00/00 mm Hg. * Examination: ???General Examination: ?GENERAL APPEARANCE:?pleasant, well nourished, well developed, in no acute distress.?EYES:?sclera non-icteric.?ORAL CAVITY:?mucosa moist.?NECK/THYROID:?no cervical lymphadenopathy, neck supple.?SKIN:?nonjaundiced, no spider angiomata.?HEART:?S1, S2 normal.?LUNGS:?clear to auscultation bilaterally.?ABDOMEN:?normal bowel sounds, no guarding or rigidity, no guarding or rigidity, no masses palpable, soft, nontender, nondistended.?EXTREMITIES:?no edema.?NEUROLOGIC:?alert and oriented.? Assessment: * Assessment: 1.?Chronic GERD - K21.9 (Maribel hernandes)?2.?Dysphagia - R13.10?3.?Colon cancer screening - Z12.11? Overall, Cathy appears isaac te well. In regard to her upper GI complaints of chronic reflux and associated dysphagia while off her PPI, we did review the possibilities of acid reflux-induced esophageal spasm, an esophageal stricture or ring, or eosinophilic esophagitis. I did recommend an upper endoscopy with possible balloon dilation for further evaluation and treatment of this. She will also undergo a screening colonoscopy given her age and excellent clinical appearance, as well as family history of colon polyps. We did review the rationale for that in regard to colon cancer prevention. Full consent was obtained from her for both procedures, including risks of bleeding and perforation. The procedures will be done with monitored anesthesia care. Cathy was comfortable with this plan. Thank you again for allowing me to participate in Cathy's care. I shall continue to keep you advised of her progress. Plan: * Treatment: 2.?Dysphagia?Procedure: UPPER GI ENDOSCOPY BALLOOON DILATION OF ESOPH (Ordered for 09/21/2023)* with MACsched for 10/04/23 at 2:50 pm 3.?Colon cancer screening?Procedure: COLONOSCOPY (Ordered for 09/21/2023)* with MACsched for 10/04/23 at 2:50 pmmiralax * Procedure Codes:?3017F COLOR ECTAL CA SCREEN DOC [id number] TOBACCO NON-[id number] BP SCR NOT PRFRM REC REASON NOS * Preventive Medicine:? ??Counseling:?Care goal follow-up plan:?Above Normal BMI Follow-up?Giving encouragement to exercise,?BMI management provided?Yes.? * Follow Up:?prn * * Sign off status: Completed true * Provider:?Murphy Arellano MD Date:? 024 Generated for Mignon floyd/Enrike/eTransmitting on:?06/22/2024 12:56 PM EDT History and Physical Notes * HPI (History of Present Illness) Category Sub-Category Detail Notes Category Not es incontinence I saw Cathy in consultation today in regard to further evaluation of her chronic gastroesophageal reflux, dysphagia, and need for colon cancer screening. As you know, Cathy is a healthy 43-year-old female who describes a fairly long-standing history of reflux and heartburn. She reports good symptomatic relief on daily omeprazole but if she tries to stop that she will develop recurrent heartburn and then dysphagia fairly promptly. She describes that as long as she takes her omeprazole regularly she does not have any difficulty with eating or swallowing. She denies any actual symptoms of esophageal obstruction but describes some sense of delay of the food going down when she has trouble with her swallowing if she is not using the omeprazole regularly. She denies any early satiety, nausea, vomiting, nor anorexia. She denies abdominal pain, jaundice, nor unintentional weight loss. Her bowel movements have been regular and without any signs of bleeding. She denies any family history of colon cancer. She does have a family history of colon polyps. She has never had an endoscopy or colonoscopy. Examination Category Sub-Category Detail Notes Category Not es General Examination GENERAL APPEARANCE: pleasant , well [...]
--- OUTSIDE RECORDS SUMMARY | 2024-06-22 12:57 | XMS_ITS | Patient Health Record ---
Author Organization [facility] Address [address] [place] [address] Care Team Providers Care Chief Credit Officer Name Role Phone Neil Sullivan MD Primary Care Provider Murphy Donnelly Unavailable [phone] Allergies No Known Allergies Reason For Referral No Information Medications Medication [...] Problem Status W/U Status Risk Notes Problem Colon cancer screening (883834976) Colon cancer screening (Z12.11) Active confirmed Problem Dysphagia (41471413) Dysphagia (R13.10) Active confirmed Problem Gastroesophageal reflux disease (disorder) (485212930) Chronic GERD (K21.9) Active confirmed Vital Signs Blood pressure diastolic 00 mm Hg 09/21/2023 Height 5 ft 4 in in 09/21/2023 Blood pressure systolic 00 mm Hg 09/21/2023 Weight 157 lbs 09/21/2023 BMI 26.95 kg/m2 09/21/2023 Encounters Encounter Location Date Provider Diagnosis [facility] [address] [place] [address] 09/21/2023 Murphy Arellano Chronic GERD K21.9 ; Dysphagia R13.10 and Colon cancer screening Z12.11 [facility] [address] [place] [address] 10/01/2023 Murphy Arellano Assessments Encounter Date Diagnosis (ICD Code) Assessment Notes Treatment Notes Treatment Clinical Notes Section Notes 09/21/2023 Dysphagia (ICD-10 - R13.10) Overall, Cathy [...] keep you advised of her progress. 09/21/2023 Chronic GERD (ICD-10 - K21.9) Overall, [...] Insured Coverage Start Date [facility]age End Date [facility] [address] [place] [address] [id number] CATHY Self - patient is the insured Medical (General) History Medical History History ICD Code Denies [place],DM,CVA,Lung disease,renal dise ase Migraine headaches Vertigo GERD Surgical History Surgery Date(Month/Year) Fibroid cyst on uterus 2013 2015
--- OUTSIDE RECORDS SUMMARY | 2024-06-22 12:57 | XMS_ITS ---
Author Organization [facility] Address [address] [place] [address] Care Team Providers Care Vessel Captain Name Role Phone Laurie BERKOWITZ, Neil Primary Care Provider Murphy Donnelly [phone] REASON FOR VISIT cancelled due to out of network Encounters Encounter Location Date Provider Diagnosis [facility] [address] [place] [address] 10/01/2023 Murphy Arellano Plan Of Treatment No Information Progress Notes * RICHI CARVALHODOB:[birth year] (43 yo F)Acc No.[id number]:10/01/2023 Patient:?RICHI CARVALHO :1980???Age:43 Y???Sex:Female Address:[address], [address] * true * Date:? Generated for Audreyi mariel/Enrike/eTransmitting on:?06/22/2024 12:57 PM EDT
--- OUTSIDE RECORDS SUMMARY | 2024-06-22 12:58 | XMS_ITS ---
Author Organization Neil Sullivan MD Address [address] [place], [place] [address] Care Team Providers Care Spring Winder Name Role Phone Neil Sullivan Primary Care Provider [phone] Results Component Value Reference Range Notes UA ClnCatch+Micro w/rflx Cul t (Not yet reviewed by provider) Interpretation: Performing Lab:[facility], [address] [place] [phone] Notes/Report: Urine, Clean Catch Color Urine Yellow Appearance Urine Clear PH 6.0 5.0-9.0 Glucose Urine UA Negative Negative mg/dL Urine Blood Negative Negative Specific [place] - Urine 1.025 1.005-1.025 Urine Protein Negative Neg-Trace mg/dL Urine Ketones Trace Negative mg/dL Nitrite Urine Negative Negative Leukocyte Esterase Urine Negative Negative RBC Urine 0-2 0-2 /HPF WBC Urine 0-5 0-5 /HPF Squamous Epithelial Cell Urine 3-5 0-2 /HPF Bacteria Urine None Seen None Seen Hyaline Casts Urine 0-2 0-2 /LPF REASON FOR VISIT U/A After Care Medications Medication SIG (Take, Route, Frequency, Duration) Notes Start Date End Date Status Cephalexin 250 MG 1 capsule Orally 3 times a day for 5 days 11/21/2023 Active Albuterol Sulfate HFA 108 (90 Base) MCG/ACT 2 puff as needed Inhalation every 4 hrs for 30 days 07/13/2023 Active Esomeprazole Magnesium 20 MG 1 capsule Orally Once a day for 30 day(s) Active Cephalexin 500 MG 1 capsule Orally twi ce a day for 5 days 06/02/2024 Active Levonorgest-Eth Estrad -Day 0.1-0.02 & 0.01 MG 1 tablet Orally Once a day for 91 day(s) Active Flonase 50 MCG/ACT 1 spray in each nost ril Nasally Once a day for 30 day(s) 05/27/2012 Not-Taking Amoxicillin-Pot Clavulanate 875-125 MG 1 tablet Orally every 12 hrs for 10 days 05/02/2024 Active Diprolene AF 0.05 % as directed External ly twice for 10 days 05/11/2011 Active Encounters Encounter Location Date Provider Diagnosis Neil Sullivan MD [address] [place] [address] [place] [phone] 06/22/2024 Neil Sullivan UTI (urinary tract infection) N39.0 Assessments Encounter Date Diagnosis (ICD Code) Assessment Notes Treatment Notes Treatment Clinical Notes Section Notes 06/22/2024 UTI (urinary tract infection) (ICD-10 - N39.0) Plan Of Treatment Pending Test Test Name Order Date UA ClnCatch+Micro w/rflx Cult 06/22/2024 Next Appt Details Provider Name:Neil ybarra, 11/21/2024 07:00:00 AM, [address] [place] [address], [address], [phone], Provider Name:Neil ybarra, 11/28/2024 08:30:00 AM, [address] [place] [address], [place] [address], [place], [place], [phone], Progress Notes * Cathy ANDINO CDOB:1979 (44 yo F)Acc No.[id number]:06/22/2024 Progress Note Patient:?Cathy ANDINO Provider:?Neil Sullivan MD :1980???Age:44 Y???Sex:Female D ate:06/22/2024 Address: [address], [facility] Subjective: * Chief Complaints: * ???1. U/A After Care. * Medical History:? * Medications:?Taking Levonorg est-Eth Estrad 91-Day 0.1-0.02 & 0.01 MG Tablet 1 tablet Orally Once a day , Taking Esomeprazole Magnesium 20 MG Capsule Delayed Release 1 capsule Orally Once a day , Taking Albuterol Sulfate HFA 108 (90 Base) MCG/ACT Aerosol Solution 2 puff as needed Inhalation every 4 hrs , Taking Cephalexin 250 MG Capsule 1 capsule Orally 3 times a day , Taking Diprolene AF 0.05 % Cream as directed Externally twice , Taking Amoxicillin-Pot Clavulanate 875-125 MG Tablet 1 tablet Orally every 12 hrs , Taking Cephalexin 500 MG Capsule 1 capsule Orally twice a day , Not-Taking/PRN Flonase 50 MCG/ACT Suspension 1 spray in each nostril Nasally Once a day Objective: * Vitals:? Assessment: * Assessment: 1.?UTI (urinary tract infect ion) - N39.0??? Plan: * Treatment: * * The named appointment provid er may or may not be the originator of this progress note, and it is not deemed complete until electronically signed by the appointment provider. Sign off status: Pending * Provider:?Neil Sullivan MD Date:?0 06/22/2024 Generated for Mignon floyd/Enrike/Venuitting on:?06/22/2024 12:57 PM EDT
--- OUTSIDE RECORDS SUMMARY | 2024-06-22 12:58 | XMS_ITS | Data Portability ---
Author Organization MELISSA Kunz s, [address] Address [address] [place] [address] Care Team Providers Care Wire Weaver Cloth Name Role Phone LEO MENG Primary Care Provider Assessment No assessment recorded. Plan of Treatment Reminders Order Date Submit Date Provider Last Modified By Organization Details Last Modified Time Details Appointments None recorded. Lab rapid SARS CoV 2 Ag, QL [place], respiratory specimen 2022 023 [place] [address] [facility], [address] [place] [address], [address], 3 10:13:59 rapid flu (A+B) 2022 023 [place] [address] [facility], [address] [place] [address], [phone], 3 10:13:59 Referral None recorded. Procedures None recorded. Surgeries None recorded. Imaging None recorded. Medication Orders Zithromax Z-Macario 250 mg tablet 2022 023 [facility], [address] [place], [address], 3 08:54:37 Medrol (Macario) 4 mg tablets in a dose pack 2022 023 [facility], [address] [place], [address], 3 08:54:37 Tamiflu 75 mg capsule 2022 023 [facility], [address] [place], [address], 08:37:09 Patient TargetsNo targets recorded. Patient Instructions Encounter Date Encounter Id Patient Instructions Last Modified By Organization Details Last Modified Time 11/03/2022 [id number] Acute Sinusitis: Care Instructions [email or web address] Not available 11/03/2022 08:55:10 Reason for Referral None Reported. Results Created Date Observation Date Name Description Value Unit Range Abnormal Flag Note LastModifiedBy Organization Detail LastModifiedTime 06/12/1906/11/2022 rapid flu (A+B) Unknown Analyte Normal = Negati ve Not Available [address] [place] [address] [place], [address], 06/11/2022 10:04:48 06/12/19 23 06/11/2022 rapid flu (A+B) Unknown Analyte Normal = Negati ve Not Available [address] [place], [address], 06/11/2022 10:04:48 06/12/19 23 06/11/2022 rapid flu (A+B) Unknown Analyte positi ve Not Available [address] [place] [address] [place], [address], 06/11/2022 10:04:48 06/12/19 23 06/11/2022 rapid flu (A+B) Unknown Analyte negati ve Not Available [address] [place] [address] [place], [address], 06/11/2022 10:04:48 06/12/19 23 06/11/2022 rapid SARS CoV 2 Ag, QL IA, respi rator y speci men Unknown Analyte Normal =Negat pop Not Available [address] [place] [address] [place], [address], 06/11/2022 09:32:34 06/12/1906/11/2022 rapid SARS CoV 2 Ag, QL IA, respi rator y speci men Unknown Analyte negati ve Not Available [address] [address] [place] [address], [place], [address], 06/11/2022 09:32:34 Result Notes None recorded. Problems No Known Problems Procedures Surgical History Date Name Laterality Status Provider Name and Address Organization Details Recorded Time uterine myomectomy completed KYLEE CARRANZA PA - [facility] 06/11/2022 09:11:23 section completed KYLEE CARRANZA PA - [facility] 06/11/2022 09:11:29 Imaging Results None recorded. Procedure Notes None recorded. Medical Equipment None Reported. Allergies No known drug allergies Medications Name Sig Start Date Stop Date Status Note LastModified by Organization Details LastModified Time Medrol (Macario) 4 mg tablets in a dose pack Take 1 dose pk by oral route as directed. 2022 active Not Available Not Available Not Avai lable Zithromax Z-Macario 250 mg tablet Take 2 tablets 1 time a day for 1 day then one tablet daily for 4 days 2022 active Not Available Not Available Not Avai lable Tamiflu 75 mg capsule Take 1 capsule twice a day by oral route for 5 days. 11/03 completed Not Available Not Available Not Available Vitals Date Recorded Body height Body mass index (BMI) Body weight Pain severity - 0-10 verbal numeric rating [Score] - Reported Respiratory rate Oxygen saturation Oxygen saturation in Arterial blood by Pulse oximetry Heart rate Body temperature Systolic blood pressure Diastolic blood pressure Provider Name and Address Organization Details Last Updated DateTime 3 162.56 cm 25.7 kg/m2 07715.8 6 g 9 18 /min 98 % 98 % 69 /min 97.8 [degF] 143 mm[Hg] 85 mm[Hg] Erma Hill PA - [facility] 3 08:38:40 Date Recorded Body height Body mass index (BMI) Body weight Pain severity - 0-10 verbal numeric rating [Score] - Reported Respiratory rate Oxygen saturation Oxygen saturation in Arterial blood by Pulse oximetry Heart rate Body temperature Systolic blood pressure Diastolic blood pressure Provider Name and Address Organization Details Last Updated DateTime 162.56 cm 25.7 kg/m2 72377.8 6 g 0 17 /min 97 % 97 % 72 /min 98.4 [degF] 123 mm[Hg] 82 mm[Hg] KYLEE Washington [facility] 09:12:13 Social History Question Answer Notes LastModified by Organizat ion Details LastModified Time Tobacco Smoking Status Never Smoker KYLEE link PA [facility] 06/11/2022 09:10:32 What Is Your Level Of Alcohol Consumption? Occasional Information not available 06/11/2022 How Many Times Per Week Do You Consume Alcohol? Less Than 1 Time Per Week [email or web address] Information not available 11/03/2022 Do You Use Any Illicit Or Recreational Drugs? No [email or web address] Information not available 06/11/2022 Have You Recently Traveled Abroad? No [email or web address] Information not available 06/11/2022 Do You Or Have You Ever Used Any Other Forms Of Tobacco Or Nicotine? No [email or web address] Information not available 06/11/2022 Sex: Unknown Functional Status None recorded. Mental Status None recorded. Family History Relationship Description Onset Age of this Age Resolved Age Notes LastModified by Organization Details LastModified Time Father No current problems or disability [email or web address] Not available 06/11 09:10:20 Mother No current problems or disability Not available 06/11 09:10:20 Medical History No medical history recorded. Gynecological History Statement/Question Response Date of LMP 10/28/2022 Is there any chance of ? No Obstetrics History GPAL:G 0 P 0 0 0 0 Immunizations Vaccine Type Date Status Note Provider Nam e and Address Organization Details Recorded Time COVID-19, mRNA, LNP-S, PF, 30 mcg/0.3 mL dose 07/07/2020 completed Erma link PA [facility] 11/03/2022 08:36:46 COVID-19, mRNA, LNP-S, PF, 30 mcg/0.3 mL dose 07/29/2020 completed Erma link PA - [facility] 11/03/2022 08:36:46 Tdap 08/06/2015 completed MELISSA Vasquez [facility] 11/03/2022 08:36:46 Past Encounters Encounter ID Performer Location Encounter Start Date Encounter Closed Date Diagnosis/Indication Diagnosis SNOMED-CT Code Diagnosis ICD10 Code Diagnosis Note [id number] [facility] [address] [facility] [place] [address] 08/21/2018 11:55:33 08/21/2018 12:47:04 [id number] [facility] [address] [facility] [place] [address] 12/06/2018 08:34:53 12/06/2018 09:06:54 [id number] [facility] [address] [facility] [place] [address] 11/18/2015 19:40:20 11/18/2015 20:11:[id number] [address] 09/23/2020 13:49:41 09/23/2020 16:07:23 [id number] [facility] [address] [facility] [place] [address] 11/11/2015 12:51:14 11/11/2015 13:58:30 [id number] [facility] [address] [facility] [place] [address] 02/09/2018 14:39:32 02/09/2018 15:09:11 [id number] [facility] [address] [facility] [place] [address] 09/23/2020 18:07:07 09/23/2020 18:44:05 [id number] [facility] [address] [facility] [place] [address] 01/06/2020 12:01:46 01/06/2020 14:11:40 [id number] SIRIA TOLBERT MD [facility] [address] [facility] [place] [address] 06/11/2022 08:13:32 06/11/2022 10:21:52 Influenza caused by Influenza A virus 122843380 J09.X2 CoughBlack Elderberry Syrup:1-2 tsp 2-3 times a day for 5 days as needed for coughing.S ambucol Black Elderberry Original Syrup (available at [employer] )[employer] Black Elderberry Syrup, 5.4-Ounce Bottle (available at [employer] or [employer]) Use a cool mist humidifier in the room that you sleep to add moisture to the air, which should soothe the airways and help loosen any mucus that may be present. Clear liquids for comfortFre sh Crystal Root Tea-Cut up fresh crystal root and boil it till fragrant. drink the liquid as a tea. Can add Honey to taste. AlsoFor Sore Throat:Thr oat Comfort Tea (by [employer])Thro at Coat Tea ( by [employer] ) Clear broth soup: Vegetable, Chicken or Beef as tolerated. Salt Water GarglesMix 1 teaspoonfu l of salt in a glass of warm water. Gargle and spit out the salt water mixture one mouthful at a time until the glass is empty. Repeat 4 times daily. [id number] Ariana Ling MD [address] [address] 11/03/2022 08:04:28 11/03/2022 08:59:19 Acute sinusitis 00046431 J01.90 - Use the medication s prescribed .- Decongesta nts if tolerated. - Recommend recheck if fever develops or no improvemen t in 5-7 days.- Use saline nasal spray or neti-pot flushes once to twice a day to loosen mucus in sinuses.-. Use a cool mist humidifier in the room that you sleep to add moisture to the air, which should soothe the airways and help loosen any mucus that may be present.-C all 911 or proceed to nearest Emergency Department if you develop shortness of breath, chest pain, severe headache or other symptoms that concern you. Health Concerns Section Related Observation LastModified by Organization Detai ls LastModified Time None Recorded Concern Status LastModified by Organization Details LastModified Time None Recorded Advance Directives Directive None Recorded Payers Encounter Date Sequence Insurance Name Policy Number Policy Monreal Covered Member ID Monreal Member ID Guarantor Name 01/06/2020 1 [facility] [id number] Cathy C Thu [id number] Cathy 09/23/2020 1 [facility] [id number] Cathy C Thu [id number] Cathy 09/23/2020 1 [facility] [id number] Cathy C Thu [id number] Cathy 06/11/2022 1 [facility] [id number] Cathy C Thu [id number] Cathy 11/03/2022 1 [facility] [id number] Cathy Thu [id number] Cathy Thu Notes Date Note Type Note Provider Name and Address Organization Details Recorded Time 3 text/html Congestion, cough, fever (100 yesterday), chills, runny nose started 3 days ago. SIRIA TOLBERT MD [address] [place], [address], [employer] 06/11/2022 10:15:30 3 text/html Sinus ComplaintsReported bypatient.Location:faci al pain;sinus pressure; left side; right side Associated Symptoms:no fever; no sore throat; No post nasal drip; no cough;nasal discharge from nostrils Quality:worsening Alleviating factors:nothing gives relief; truied afrin and mucinex History frequent Sinusitis, states that amoxcillin never helps her and PCP alwys gives Elvis Ling MD [address] [place], [address], [employer] [facility] 11/03/2022 09:00:35 OBGyn Episode No OBEpisode recorded.
--- OUTSIDE RECORDS SUMMARY | 2024-06-22 12:58 | XMS_ITS | Patient Health Record ---
Author Organization Neil Sullivan MD Address [address] [place], [place] [address] Care Team Providers Care Flight Control Specialist Name Role Phone Neil [place] Primary Care Provider Allergies Allergen (clinical drug ingredient) Drug/Non Drug Allergy documented on EMR Reaction Allergy Type Onset Date Status sumatriptan Imitrex (uncoded) tense feeling Allergy Active naproxen / sumatriptan Treximet (uncoded) GI Upset Allergy Active Results Component Value Reference Range Notes Urine Culture Reviewed date:11/22/2023 07:55:15 AM Interpretation: Performing Lab:[facility], [address] [place] [address] Notes/Report: O:ESCCOL Escherichia coli Urine Culture Quant Urine Culture > 100,000 cfu/mL O:CORSPE Corynebacterium species Urine Culture No [facility] Urine Culture Standard methods for susceptibility testing not established. Urine Culture Quant Urine Culture 10,000 to 50,000 cfu/mL Ampicillin 4 Ceftriaxone <=0.25 Gentamicin <=1 Levofloxacin <=0.12 Nitrofurantoin <=16 Trimethoprim/Sulfamethoxa zole <=20 Complete Blood Count Auto Di ff Reviewed date:11/19/2023 03:31:44 PM Interpretation: Performing Lab:[facility], [address] [place] [address] Notes/Report: White Blood Count 6.9 4.8-10.8 X10*3/uL [...] NRBC Abs Auto 0.000 0.0-0.012 X10*3/uL Comprehensive [place]. Panel Fa st Reviewed date:11/19/2023 03:39:57 PM Interpretation: Performing Lab:[facility], [address] [place] [address] Notes/Report: Sodium 139 135-145 mmol/L Potassium 4.0 3.3-5.1 mmol/L Chloride 108 96-108 mmol/L Carbon Dioxide 25 22-29 mmol/L Anion Gap 10 12-20 Blood Urea Nitrogen 16 9-16 mg/dL Creatinine 0.96 0.5-1.4 mg/dL Estimated Glomerular Filt Rate > 60 NOTE: For -Polish individuals, multiply the result by 1.210. Chronic [...] Panel Reviewed date:11/19/2023 03:32:21 PM Interpretation: Performing Lab:[facility], [address] [place] [phone] Notes/Report: Triglycerides 68 <150 mg/dL Desirable Triglyceride: [...] t Reviewed date:11/22/2023 07:56:40 AM Interpretation: Performing Lab:[facility], [address] [place] [address] Notes/Report: Urine, Clean Catch Color Urine Yellow Appearance Urine Clear PH 5.5 5.0-9.0 Glucose Urine UA Negative Negative mg/dL Urine Blood Trace Negative Specific [place] - Urine 1.020 1.005-1.025 Urine Protein Negative Neg-Trace mg/dL Urine Ketones Negative Negative mg/dL Nitrite Urine Negative Negative Leukocyte Esterase Urine Small (1+) Negative RBC Urine 3-5 0-2 /HPF WBC Urine 6-10 0-5 /HPF Squamous Epithelial Cell Urine 6-10 0-2 /HPF Bacteria Urine 2+ None Seen Hyaline Casts Urine 0-2 0-2 /LPF UA ClnCatch+Micro w/rflx Cul t Reviewed date:12/03/2023 12:14:07 PM Interpretation: Performing Lab:[facility], [address] [place] [phone] Notes/Report: Urine, Clean Catch Color Urine Yellow Appearance Urine Clear PH 7.0 5.0-9.0 Glucose Urine UA Negative Negative mg/dL Urine Blood Negative Negative Specific [place] - Urine <= 1.005 1.005-1.025 Urine Protein Negative Neg-Trace mg/dL Urine Ketones Negative Negative mg/dL Nitrite Urine Negative Negative Leukocyte Esterase Urine Negative Negative RBC Urine 0-2 0-2 /HPF WBC Urine 0-5 0-5 /HPF Squamous Epithelial Cell Urine 0-2 0-2 /HPF Bacteria Urine None Seen None Seen Hyaline Casts Urine 0-2 0-2 /LPF Urine Culture Reviewed date:06/04/2024 09:33:44 AM Interpretation: Performing Lab:[address] [address] Notes/Report: Urine Culture Report Result Urine Culture 10,000 to 50,000 cfu/ml Urine Culture Mixed bacterial marisa a characteristic of Urine Culture urogenital contamination. UA ClnCatch+Micro w/rflx Cul t Reviewed date:06/05/2024 09:49:01 AM Interpretation: Performing Lab:[facility], [address] [place] [phone] Notes/Report: Urine, Clean Catch Color Urine Yellow Appearance Urine Clear PH 8.0 5.0-9.0 Glucose Urine UA Negative Negative mg/dL Urine Blood Trace Negative Specific [place] - Urine 1.015 1.005-1.025 Urine Protein Negative Neg-Trace mg/dL Urine Ketones Negative Negative mg/dL Nitrite Urine Negative Negative Leukocyte Esterase Urine Moderate (2+) Negative RBC Urine 6-10 0-2 /HPF WBC Urine >50 0-5 /HPF Squamous Epithelial Cell Urine 0-2 0-2 /HPF Bacteria Urine None Seen None Seen Hyaline Casts Urine 0-2 0-2 /LPF UA ClnCatch+Micro w/rflx Cul t (Not yet reviewed by provider) Interpretation: Performing Lab:[facility], [address] [place] [address], [place] [address] Notes/Report: Urine, Clean Catch Color Urine Yellow Appearance Urine Clear PH 6.0 5.0-9.0 Glucose Urine UA Negative Negative mg/dL Urine Blood Negative Negative Specific [place] - Urine 1.025 1.005-1.025 Urine Protein Negative [...] Duration) Notes Start Date End Date Status Flonase 50 MCG/ACT 1 spray in each [...] a day for 5 days 06/02/2024 Active Amoxicillin-Pot Clavulanate 875-125 MG 1 tablet Orally every 12 hrs for 10 days 05/02/2024 Active Diprolene AF 0.05 % as directed External ly twice for 10 days 05/11/2011 Active Levonorgest-Eth Estrad -Day 0.1-0.02 & 0.01 MG 1 tablet Orally Once a day for 91 day(s) Active Immunizations Vaccine Route Administration Date Status [...] Status W/U Status Risk Notes Problem Migraine (02334404) Migraine, unspecified, without mention of intractable migraine with status migrainosus (346.92) Active confirmed Problem Contact dermatitis caused by chemical (958772165540) 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 confirmed Problem 1748790 Migraine with aura and without status migrainosus, not intractable (G43.109) Active confirmed Vital Signs Blood pressure diastolic 70 mm Hg 11/26/2023 angus ght is up 13 pounds since 07-13-23 Height 64.25 in 05/02/2024 weight is 145 a nd BP not taken no temp today it was 100 17-25 Blood pressure systolic 112 mm Hg 11/26/2023 weig ht is up 13 pounds since 07-13-23 Weight 158 lbs 11/26/2023 weight is up 13 pounds since 07-13-23 BMI 26.91 kg/m2 11/26/2023 weight is up 13 pounds since 07-13-23 Encounters Encounter Location Date Provider Diagnosis Neil Sullivan MD [address] [place] [address] Drive [address] [place] [id number] 11/19/2023 Neil Sullivan Blood tests for routine general physical examination Z00.00 Neil Sullivan MD [address] [place] [address] [address] [place] [id number] 12/03/2023 Neil Sullivan Urinary tract infection without hematuria, site unspecified N39.0 Neil Sullivan MD [address] [place] [address] [address] [place] [id number] 06/02/2024 Neil Sullivan UTI (urinary tract infection) N39.0 Neil Sullivan MD [address] [place] [address] [id number] 06/22/2024 Neil Sullivan UTI (urinary tract infection) N39.0 Neil Sullivan MD [address] [place] [id number] 07/13/2023 Neil Sullivan Bronchitis J40 Neil Sullivan MD [address] [place] [id number] 11/26/2023 Neil Sullivan Physical exam, annual Z00.00 Neil Sullivan MD [address] [place] [id number] 05/02/2024 Neil Sullivan Acute recurrent maxillary sinusitis J01.01 Neil Sullivan MD [address] [place] [id number] 11/21/2023 Neil Sullivan MD [address] [place] [id number] 03/16/2024 Neil Sullivan MD [address] [place] [id number] 06/02/2024 Neil Sullivan Assessments Encounter Date Diagnosis (ICD Code) Assessment Notes Treatment Notes Treatment Clinical Notes Section Notes 11/19/2023 Blood tests for routine general physical examination (ICD-10 - Z00.00) 12/03/2023 Urinary tract infection without hematuria, site unspecified (ICD-10 - N39.0) 06/02/2024 UTI (urinary tract infection) (ICD-10 - N39.0) 06/22/2024 UTI (urinary tract infection) (ICD-10 - [...] Cult 06/22/2024 Next Appt Details Provider Name:Neil Ledesma ier, 11/21/2024 07:00:00 AM, [address] [facility], [address], [place], [place], [phone], Provider Name:Neil ybarra, 11/28/2024 08:30:00 AM, [address] [facility], [address], [place], [place], [phone], Insurance Providers Payer Name Payer Address Payer Phone Subscriber Number Group Number Insured Name Patient Relationship to Insured Coverage Start Date Coverage End Date [employer] [place] [id number] [place] [address] [id number] Cathy Andino Self - patient is the insured
== END 2024-06-22 10:24 | disposition home or self-care (01) ==
LOC: HO.LNP 10:23
PROVIDERS: Visit Provider Internal Medicine
DX: N39.0 Urinary tract infection, site not specified (principal)
CPT/HCPCS: 81001

== ENCOUNTER 2024-11-21 07:00 | Outpatient (REF) | payer OTHER, SELFPAY ==
--- OUTSIDE RECORDS SUMMARY | 2024-08-22 05:05 | XMS_ITS ---
Author Organization Neil Sullivan MD Address [address] [place] [phone] Care Team Providers Care Dermatologist Name Role Phone Neil Sullivan Primary Care Provider REASON FOR VISIT sinus pressure Medications Medication SIG (Take, Route, Frequency, Duration) Notes Start Date End Date Status Amoxicillin-Pot Clavulanate 875-125 MG 1 tablet Orally every 12 hrs for 10 days 08/03/2024 Active Encounters Encounter Location Date Provider Diagnosis Neil Sullivan MD [address] [facility] [address] [place] [phone] 08/22/2024 Neil Sullivan Sinusitis J32.9 Assessments Encounter Date Diagnosis (ICD Code) Assessment Notes Treatment Notes Treatment Clinical Notes Section Notes 08/22/2024 Sinusitis (ICD-10 - J32.9) Plan Of Treatment Medication Medication Name Sig Start Date Stop Date Notes Amoxicillin-Pot Clavulanate 875-125 MG 1 tablet Orally every 12 hrs for 10 days 08/03/2024 Next Appt Details Provider Name:Neil ybarra, 11/24/2024 02:30:00 PM, [address] [facility] [address], Suite [facility], [place], [phone], Progress Notes * Cathy ANDINO CDOB:1979 (44 yo F)Acc No.[id number]:08/22/2024 Patient: Cathy FISCHER :1980 A ge:44 Y S ex:Female Address: [address], [place] [address] * Refills Continue Amoxicillin-Pot Clavulanate Tablet, 875-125 MG, Orally, 20 Tablet, 1 tablet, every 12 hrs, 10 days * true * Date: Generated for Mignon floyd/Enrike/Venuitting on: 0 11/21/2024 11:21 AM EDT
[2024-11-21 10:22] LABS: MANUAL DIFF FLAG NO
[2024-11-21 10:27] LABS: Appearance Urine Clear; Glucose Urine UA Negative (Negative); PH 5.5 (5.0-9.0); Specific Gravity - Urine 1.010 (1.005-1.025); UMIC TRIGGER UACC YES
[2024-11-21 10:38] LABS: Hematocrit 39.4 % (37.0-47.0); Hemoglobin 13.1 g/dl (12.0-16.0); Imm Gran Abs Auto 0.03 X10*3/uL (0.00-0.03); Imm Gran Pct Auto 0.4 % (0.0-0.4); Lymphocytes Absolute Auto 2.1 X10*3/uL (1.2-4.9); Mean Corpuscular HGB Conc 33.2 g/dl (31.0-35.0); Mean Corpuscular Hemoglobin 28.9 pg (27.0-33.0); Mean Corpuscular Volume 86.8 fL (80.0-98.0); NRBC Abs Auto 0.000 X10*3/uL (0.0-0.012); NRBC Pct Auto 0.0 /100WBC (0.0-0.2); Platelet Count 306 X10*3/uL (160-400); Red Blood Count 4.54 X10*6/uL (4.20-5.50); White Blood Count 6.9 X10*3/uL (4.8-10.8)
[2024-11-21 10:45] LABS: Alanine Aminotransferase 11 U/L (0-31); Albumin Level 4.1 g/dL (3.5-5.0); Alkaline Phosphatase 52 U/L (39-117); Anion Gap 12 (12-20); Aspartate Amino Transferase 21 U/L (5-31); Blood Urea Nitrogen 14 mg/dL (9-16); Calcium 9.1 mg/dL (8.4-10.2); Carbon Dioxide 25 mmol/L (22-29); Chloride 107 mmol/L (96-108); Estimated Glomerular Filt Rate > 60; Potassium 4.1 mmol/L (3.3-5.1); Sodium 140 mmol/L (135-145); Total Protein 7.1 g/dL (6.5-8.0)
--- OUTSIDE RECORDS SUMMARY | 2024-11-21 11:21 | XMS_ITS | Patient Health Record ---
Author Organization [facility] Address [address] [place] [address] Care Team Providers Care Business Intelligence Etl Developer Name Role Phone Neil Sullivan MD Primary Care Provider Murphy Donnelly Unavailable [phone] Allergies No Known Allergies Reason For Referral [...] Status Risk Notes Problem Colon cancer screening (575460775) Colon cancer screening (Z12.11) Active confirmed Problem Dysphagia (72173930) Dysphagia (R13.10) Active confirmed Problem Chronic GERD (K21.9) Active confirmed Plan Of Treatment Future Test Test Name Order Date UPPER GI ENDOSCOPY BALLOOON DILATION OF ESOPH 09/21/2023 COLONOSCOPY 09/21/2023 Insurance Providers Payer Name Payer Address Payer Phone Subscriber Number Group Number Insured Name Patient Relationship to Insured Coverage Start Date Coverage End Date [employer] [address] [place] [phone] [id number] [id number] CARVALHO Self - patient is the insured Medical (General) History Medical History History ICD Code Denies [place],DM,CVA,Lung disease,renal dise ase Migraine headaches Vertigo GERD Surgical History Surgery Date(Month/Year) Fibroid cyst on uterus 2013 2016
== END 2024-11-21 07:01 | disposition home or self-care (01) ==
LOC: HO.LNP 07:00
PROVIDERS: Visit Provider Internal Medicine
DX: Z00.00 Encounter for general adult medical examination without abnormal findings (principal); Z13.0 Encounter for screening for diseases of the blood and blood-forming organs and certain disorders involving the immune mechanism
CPT/HCPCS: 80053; 81001; 85025